=== PATIENT | female | born 1990 | race Caucasian/White ===

== ENCOUNTER → 2017-07-30 13:39 | Outpatient (CLI) | payer OTHER, SELFPAY ==
--- NOTE | 2017-07-30 14:28 | NEURO ---
NCS and/or EMG Patient Report Ordering Doctor: Onur Izaguirre DATE OF SERVICE: 07/30/17 Trista Smallwood is a 27 year old female who presents with complaints of numbness and tingling in the left hand. Electrodiagnostic findings: On nerve conduction study, left median motor nerve demonstrates normal distal latency, amplitude and conduction velocity. Normal left ulnar motor response. Normal left median and ulnar F waves. Normal sensory responses. On needle EMG, all muscles tested in the left upper limb show no evidence of denervation with normal motor unit action potentials. Electrodiagnostic impression: This is a normal electrodiagnostic study in the left upper limb. There is no electrodiagnostic evidence for peripheral neuropathy, including carpal tunnel syndrome. There is no electrodiagnostic evidence for cervical radiculopathy. If there are any further questions, please do not hesitate to contact me.
== END ==
PROVIDERS: Family Provider Family Medicine; PCP Family Medicine; Visit Provider Orthopaedic Surgery
DX: G56.02 Carpal tunnel syndrome, left upper limb (principal)
CPT/HCPCS: 95886; 95910